=== PATIENT | female | born 1985 | race Caucasian/White ===

== ENCOUNTER 2016-11-16 19:52 | Emergency (ER) | payer OTHER ==
[2016-11-16 20:07] VITALS: BMI 31.1
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
[2016-11-16] MEDS ORDERED: TORADOL TAB PO ONE (23:43)
[2016-11-16 23:56] VITALS: BP 123/74
== END 2016-11-16 23:55 | disposition home or self-care (01) ==
LOC: ER 20:11
DX: S20.219A Contusion of unspecified front wall of thorax, initial encounter (principal); R07.89 Other chest pain; V89.2XXA Person injured in unspecified motor-vehicle accident, traffic, initial encounter
CPT/HCPCS: 71250; 99282

== ENCOUNTER 2018-03-14 06:08 | Inpatient (IN) ==
[2018-03-14] MEDS ORDERED: NUBAIN INJ 200 MG VIAL MULTIDOSE IVP PRN (06:36)
[2018-03-14] MEDS ORDERED: REGLAN INJ 10 MG VIAL IVP PRN ×2 (06:36→17:40)
[2018-03-14] MEDS ORDERED: MORPHINE SULFATE INJ 2 MG INJ IVP PRN (06:36)
[2018-03-14] MEDS ORDERED: PHENERGAN INJ 25 MG IV PRN ×2 (06:36→16:43)
[2018-03-14] MEDS ORDERED: D5LR 1L W PITOCIN 10 UNITS/L 10 UNITS/1,000 ML BAG IV PRN (06:36)
[2018-03-14] MEDS ORDERED: PITOCIN IVP ONE (06:36)
[2018-03-14] MEDS ORDERED: D5 1/2 NS 1000 ML 1,000 ML IV SCH (06:36)
--- NOTE | 2018-03-14 07:22 | DR.OB ---
OB Quick Note - Assessment/Plan Assessment/Plan: L&D 03/14/18 at 7:05am S-No complaint. O-Afebrile,VSS DYB=135 with good LTV, +accel, no decel. CTX=none CVX=2cm/thick/-1/VTX AROM with clear fluid. IUPC and FSE placed. A-IUP at 39 1/7 weeks for induction Multiparity h/o chlamydia P-Begin pitocin induction Anticipate with PP BTL
[2018-03-14] MEDS ORDERED: D5LR 1L W PITOCIN 10 UNITS/L 10 UNITS/1,000 ML BAG IV ONE (07:42)
[2018-03-14] MEDS ORDERED: PITOCIN ONE (07:43)
[2018-03-14] MEDS ORDERED: D5 1/2 NS 1L W PITOCIN 20 UNITS/L 20 UNITS/1,000 ML BAG IV ONE (07:43)
[2018-03-14] MEDS ORDERED: D5 1/2 NS 1000 ML 1,000 ML IV ONE (07:43)
[2018-03-14] MEDS ORDERED: NAROPIN EPIDURAL 0.2% + FENTANYL 90MCG 60 ML EPI ONE ×2 (10:04→15:06)
[2018-03-14] MEDS ORDERED: XYLOCAINE-MPF 1% ONE ×2 (10:04→13:46)
[2018-03-14] MEDS ORDERED: LR 1000 ML IV 1,000 ML IV ONE ×2 (10:04→13:45)
[2018-03-14] MEDS ORDERED: ADRENALINE CHL INJ ONE ×2 (10:04→13:46)
[2018-03-14] MEDS ORDERED: XYLOCAINE 1 % (PLAIN) ONE ×2 (10:04→13:46)
--- NOTE | 2018-03-14 12:06 | DR.OB ---
OB Quick Note - Assessment/Plan Assessment/Plan: L&D 03/14/18 at 12:02pm Pitocin=20mu/min. S-No complaint. s/p epidural. O-Afebrile,VSS VXI=[id number] with good LTV, +accel, no decel. CTX=q 2 min. , about 45-55mmHg CVX=3cm/50%/-1/VTX A-IUP at 39 1/7 weeks for induction Multiparity h/o chlamydia P-Cont. pitocin induction Anticipate with PP BTL
[2018-03-14] MEDS ORDERED: FENTANYL INJ 100 mcg ONE (13:46)
[2018-03-14] MEDS ORDERED: ZOFRAN INJ 4 MG VIAL ONE (15:41)
[2018-03-14] MEDS ORDERED: VERSED ONE (15:41)
[2018-03-14] MEDS ORDERED: DIPRIVAN VIAL ONE (15:41)
[2018-03-14] MEDS ORDERED: ANCEF 1 GRAM IV PREMIX* 1 G/50 ML BAG IV ONE (16:22)
[2018-03-14] MEDS ORDERED: XYLOCAINE 2% and EPINEPHRINE 1:100,000 ONE (16:44)
--- NOTE | 2018-03-14 16:47 | DR.OB ---
OB Quick Note - Assessment/Plan Assessment/Plan: Delivery Note REMOTE ADVISOR 03/14/18 at 4:34pm Patient complete and pushing. Head delivered over intact perineum. Nuchal cord x 2 reduced. Nose and mouth bulb suctioned. Body delivered over intact perineum. Cord clamped x 2 and cut. Infant handed to attendant. Cord sent for gases. Placenta delivered spontaneously / intact / 3 vessel cord. No CVX / vaginal / perineal tears noted. Viable male infant, VTX/OA, wt=6'9" and 9/9, stable to NBN. Mother stable to RR. [id number].
[2018-03-14] MEDS: D5 1/2 NS 1000 ML 1,000 ML with PITOCIN 20 UNITS IV SCH ×2 (16:55)
[2018-03-14] MEDS ORDERED: KETALAR ONE (17:12)
[2018-03-14] MEDS ORDERED: PHENERGAN INJ 25 MG IVP PRN (17:40)
[2018-03-14] MEDS ORDERED: BENADRYL INJ 50 MG VIAL IVP PRN (17:40)
[2018-03-14] MEDS ORDERED: ZOFRAN INJ 4 MG VIAL IVP PRN (17:40)
[2018-03-14] MEDS ORDERED: DILAUDID INJ IVP PRN (17:40)
[2018-03-14] MEDS ORDERED: DERMOPLAST SPRAY TOP PRN (18:02)
[2018-03-14] MEDS ORDERED: ADACEL or BOOSTRIX TDaP VACCINE IM ONE (18:02)
[2018-03-14] MEDS ORDERED: MILK OF MAGNESIA PO PRN ×2 (18:02)
[2018-03-14] MEDS ORDERED: AMBIEN PO PRN ×2 (18:02)
[2018-03-14] MEDS: ZANTAC PO SCH (20:52)
[2018-03-14] MEDS: MOTRIN TAB 800 MG PO PRN (20:53)
[2018-03-14] MEDS: PERCOCET TAB 5/325 MG PO PRN (22:32)
[2018-03-15 05:17] LABS: HEMATOCRIT 24.7 % (36.0-47.0)
[2018-03-15 05:27] LABS: HEMOGLOBIN 8.7 g/dL (12.0-16.0)
[2018-03-15] MEDS: D5 1/2 NS 1000 ML 1,000 ML with PITOCIN 20 UNITS IV SCH ×4 (05:53→14:39)
[2018-03-15] MEDS: PERCOCET TAB 5/325 MG PO PRN ×3 (05:54→22:10)
[2018-03-15] MEDS: ZANTAC PO SCH ×2 (09:58→20:47)
[2018-03-15] MEDS: PRENATAL PLUS PO SCH (09:58)
[2018-03-15] MEDS: COLACE CAP 100 MG PO SCH ×2 (09:58→20:48)
[2018-03-15] MEDS: FERROUS GLUCONATE PO SCH ×2 (09:58→20:48)
[2018-03-15] MEDS: MOTRIN TAB 800 MG PO PRN (11:50)
[2018-03-15] MEDS: BACTROBAN TOPICAL OINT TOP SCH ×2 (13:02→21:45)
[2018-03-16] MEDS: PERCOCET TAB 5/325 MG PO PRN (04:17)
[2018-03-16] MEDS: MYLICON TAB 80 MG CHEW PO PRN ×2 (05:11→08:14)
[2018-03-16] MEDS: BACTROBAN TOPICAL OINT TOP SCH (05:11)
[2018-03-16] MEDS: FERROUS GLUCONATE PO SCH (06:01)
[2018-03-16] MEDS: COLACE CAP 100 MG PO SCH (08:14)
[2018-03-16] MEDS: PRENATAL PLUS PO SCH (08:14)
[2018-03-16] MEDS: ZANTAC PO SCH (08:14)
[2018-03-16 10:25] VITALS: BP 114/60
== END 2018-03-16 11:14 | disposition home or self-care (01) | DRG 798 ==
LOC: LD 06:08 → MED/SURG 18:01
PROVIDERS: ADMIT Specialist; ATTEND Specialist
DX: D50.8 Other iron deficiency anemias; Z3A.39 39 weeks gestation of pregnancy; Z23 Encounter for immunization; O99.02 Anemia complicating childbirth; O98.311 Other infections with a predominantly sexual mode of transmission complicating pregnancy, first trimester; Z37.0 Single live birth; Z30.2 Encounter for sterilization
CPT/HCPCS: 36415; 59409; 80048; 80307; 81001; 85014; 85018; 85025; 86592; 86850; 86900; 86901; 90715; A4216; A4222; S0197; G0434; J0171; J0690; J2001; J2250; J2405; J2590; J2704; J3010; J3490; J7120; S5010